=== PATIENT | male | born 1995 | race African-American/Black ===

== ENCOUNTER 2023-07-24 02:47 | Emergency (ER) | payer MEDICAID, OTHER ==
[~2023-07-24] VITALS: Ht 172.7 cm; Wt 81.8 kg
[2023-07-24 03:13] VITALS: BP 127/80; PULSE 88; TEMP 98
[2023-07-24] MEDS ORDERED: ALBUTEROL SULF 2.5 MG/0.5ML(0.5%) NEB SOLN NEB ONE (03:15)
[2023-07-24] MEDS ORDERED: IPRATROPIUM BROM 0.5 MG/2.5ML INH SOL NEB ONE (03:15)
[2023-07-24 03:28] VITALS: RESP 18; O2SAT 98
[2023-07-24] MEDS ORDERED: DexAMETHasone SOD PHOS 10MG/1ML VIAL INJ IM ONE (04:15)
[2023-07-24] MEDS ORDERED: PRED20TA2 PO (05:15)
[2023-07-24] MEDS ORDERED: ALBUAER3 IN (05:15)
== END 2023-07-24 05:24 | disposition home or self-care (01) ==
LOC: ER 02:50
DX: J45.901 Unspecified asthma with (acute) exacerbation (principal); J06.9 Acute upper respiratory infection, unspecified; E78.5 Hyperlipidemia, unspecified; F12.10 Cannabis abuse, uncomplicated
CPT/HCPCS: 71045; 94640; 96372; 99283; J1100; J7644